=== PATIENT | female | born 1995 | race Caucasian/White ===

== ENCOUNTER 2016-11-22 17:08 | Emergency (ER) | payer OTHER ==
[~2016-11-22] VITALS: Ht 154.9 cm; Wt 48.1 kg
[2016-11-22 18:25] VITALS: BP 110/76
== END 2016-11-22 18:25 | disposition home or self-care (01) ==
LOC: ER 17:08
DX: S67.01XA Crushing injury of right thumb, initial encounter (principal); S60.111A Contusion of right thumb with damage to nail, initial encounter; Z88.1 Allergy status to other antibiotic agents; W23.0XXA Caught, crushed, jammed, or pinched between moving objects, initial encounter; Y93.89 Activity, other specified; Y92.89 Other specified places as the place of occurrence of the external cause; Y99.8 Other external cause status